=== PATIENT | male | born 1935 | race African-American/Black ===

== ENCOUNTER 2017-06-26 10:38 | Emergency (ER) | payer OTHER ==
[2017-06-26 10:55] VITALS: TEMP 97.7; BMI 27.8
--- NOTE | 2017-06-26 10:56 | PDOC ---
History of Present Illness - General Chief Complaint: Urinary Problem Stated Complaint: URINARY RETENTION Time Seen by Provider: 06/26/17 10:46 - History of Present Illness Initial Comments: 06/26/17 10:51 82 M with h/o BPH, HTN, colon CA s/p resection and chemo, presenting to ER with 20 hours of urinary retention. Pt was at [facility] 5 days ago for similar issue, had been unable to urinate for 24 hours, and he had a reyna catheter placed. Pt was discharged home on flomax and cipro, which he has been taking. He followed up with his urologist yesterday, and the catheter was removed at 3 PM. Since then, pt has not been able to void. He now complains of lower abdominal pain and strong urge to urinate. Denies F/C. Denies flank pain. Denies N/V/D. Past History - Past Medical History Allergies/Adverse Reactions: Allergies Allergy/AdvReac Type Severity Reaction Status Date / Time No Known Allergies Allergy Verified 06/26/17 10:44 Home Medications: Ambulatory Orders Ciprofloxacin [Cipro (Restricted To Id)] 500 mg PO Q12H 06/26/17 Labetalol HCl 300 mg PO BID 06/26/17 Tamsulosin HCl [Flomax] 0.4 mg PO DAILY 06/26/17 Timolol 0.5% [Timoptic 0.5%] 1 drop OP BID 06/26/17 Cancer: Yes (colon) COPD: No HTN: Yes - Surgical History Abdominal Surgery: Yes (colon resection) - Suicide/Smoking/Psychosocial Hx Smoking History: Never smoked Hx Alcohol Use: No Drug/Substance Use Hx: No Substance Use Type: None Review of Systems - Review of Systems Comments:: 06/26/17 10:53 "GENERAL/CONSTITUTIONAL: No fever or chills. No weakness. HEAD, EYES, EARS, NOSE AND THROAT: No change in vision. No ear pain or discharge. No sore throat. CARDIOVASCULAR: No chest pain or shortness of breath. RESPIRATORY: No cough, wheezing, or hemoptysis. GASTROINTESTINAL: +lower abdominal pain, No nausea, vomiting, diarrhea or constipation. GENITOURINARY: + urinary retention MUSCULOSKELETAL: No joint or muscle swelling or pain. No neck or back pain. SKIN: No rash NEUROLOGIC: No headache, vertigo, loss of consciousness, or change in strength/ sensation. ENDOCRINE: No increased thirst. No abnormal weight change. HEMATOLOGIC/LYMPHATIC: No anemia, easy bleeding, or history of blood clots. ALLERGIC/IMMUNOLOGIC: No hives or skin allergy. " *Physical Exam - Vital Signs Last Vital Signs Temp Pulse Resp BP Pulse Ox 97.7 F 79 18 191/131 99 06/26/17 10:44 06/26/17 10:44 06/26/17 10:44 06/26/17 10:44 06/26/17 10:44 - Physical Exam Comments: 06/26/17 10:53 "GENERAL: Awake, alert, and fully oriented, in no acute distress HEAD: No signs of trauma EYES: PERRLA, EOMI, sclera anicteric, conjunctiva clear ENT: Auricles normal inspection, hearing grossly normal, nares patent, oropharynx clear without exudates. Moist mucosa NECK: Nontender, no stepoffs, Normal ROM, supple, no lymphadenopathy, JVD, or masses LUNGS: Breath sounds equal, clear to auscultation bilaterally. No wheezes, and no crackles HEART: Regular rate and rhythm, normal S1 and S2, no murmurs, rubs or gallops ABDOMEN: + lower abdominal tenderness with palpable bladder EXTREMITIES: Normal range of motion, no edema. No clubbing or cyanosis. No cords, erythema, or tenderness NEUROLOGICAL: Cranial nerves II through XII intact. 5/5 strength and sensation in all extremities, Normal speech, normal gait SKIN: Warm, Dry, normal turgor, no rashes or lesions noted. " ED Treatment Course - LABORATORY CBC & Chemistry Diagram: 06/26/17 11:00 06/26/17 11:00 Medical Decision Making - Medical Decision Making 06/26/17 10:56 82 M with urinary retention x 20 hours, likely 2/2 BPH. Is currently being tx' ed for UTI with cipro, which he reports compliance with. - Reyna catheter - Labs to check renal function - UA, UCx 06/26/17 13:24 Pt with 1000cc urine drained, with resolution of abdominal pain. Repeat abdominal exam nontender. Labs notable for Cr 1.7. No baseline to compare. Pt to f/u with urologist tomorrow. 06/26/17 14:14 Pt noted to be hypertensive to 200s systolic. Pt admits to not taking his BP meds today. Will give home dose labetalol and losartan. 06/26/17 15:01 BP rechecked after home meds. Now 170/90. Pt states he usually runs high but cannot remember what his baseline BP is. Pt informed that he needs to call his PMD tomorrow to have his BP meds adjusted. *DC/Admit/Observation/Transfer Diagnosis at time of Disposition: Urinary retention - Discharge Dispostion Disposition: HOME Condition at time of disposition: Fair - Referrals - Patient Instructions Printed Discharge Instructions: DI for Urinary Retention in Men Additional Instructions: You must follow up with your urologist TOMORROW. Your labs today showed that your kidney function is slightly decreased. This may be due to the obstruction that was caused by your prostate. You need to have your bloodwork and kidney function tests rechecked within a few days to be sure your kidneys are recovering. Tell your urologist that your Creatinine level was 1.7 today Continue taking the antibiotics as prescribed. If the catheter stops draining or if you experience fevers, pain, or any other concerning symptoms, return to the ER immediately. You also need to call your primary doctor tomorrow regarding your blood pressure , which was quite high today. You may need to have your medications adjusted, as uncontrolled blood pressure can lead to serious heart disease, illness, or even . - Post Discharge Activity - Attestations Physician Attestion: 06/26/17 13:32 I, Dr. Yassine Baker MD, attest that this document has been prepared under my direction and personally reviewed by me in its entirety. I further attest, that it accurately reflects all work, treatment, procedures and medical decision -making performed by me.
[2017-06-26 11:13] LABS: HEMATOCRIT 34.4 % (35.4-49); HEMOGLOBIN 11.8 GM/dl (11.7-16.9); MCH 30.5 pg (25.7-33.7); MCHC 34.2 g/dl (32.0-35.9); MEAN CELL VOLUME 89.3 fl (80-96); MEAN PLT VOLUME 8.8 fl (7.5-11.1); PLATELET COUNT 224 K/MM3 (134-434); RBC 3.86 M/mm3 (4.00-5.60); RDW 13.8 % (11.9-15.9); WHITE BLOOD COUNT 10.6 K/mm3 (4.0-10.8)
[2017-06-26 11:31] LABS: ALBUMIN 3.8 g/dl (3.5-5.0); ALK PHOS 50 U/L (32-92); ANION GAP 6 (8-16); BILIRUBIN,TOTAL 0.8 mg/dl (0.2-1.0); BLOOD UREA NITROGEN 25 mg/dl (7-18); CALCIUM 9.2 mg/dl (8.4-10.2); CHLORIDE 103 mmol/L (98-107); CO2 20 mmol/L (22-28); CREATININE 1.7 mg/dl (0.6-1.3); GLUCOSE,RANDOM 105 mg/dl (74-106); POTASSIUM 3.5 mmol/L (3.5-5.1); SGOT/AST 24 U/L (10-42); SGPT/ALT 13 U/L (10-40); SODIUM 129 mmol/L (136-145); TOT PROT 6.5 g/dl (6.4-8.3)
[2017-06-26] MEDS ORDERED: LABETALOL HCL 100 MG TABLET (FP) PO ONE (14:13)
[2017-06-26] MEDS ORDERED: LOSARTAN POTASSIUM 50 MG TABLET (FP) PO ONE (14:14)
[2017-06-26 15:31] VITALS: BP 151/95; PULSE 65
[2017-06-26 15:51] LABS: URINE APPEARANCE Clear; URINE BILIRUBIN Negative (NEGATIVE); URINE GLUCOSE (UA) Negative (NEGATIVE); URINE KETONE Negative (NEGATIVE); URINE NITRITE Negative (NEGATIVE); URINE PROTEIN Negative (NEGATIVE); URINE UROBILINOGEN 0.2 (0.2-1.0)
[2017-06-26 15:53] LABS: URINE BLOOD 2+ (NEGATIVE); URINE COLOR YELLOW; URINE LEUK ESTERASE TRACE (NEGATIVE)
[2017-06-26 15:56] LABS: URINE BACTERIA FEW /hpf (NEGATIVE); URINE WBC 0-2 (0-2)
[2017-06-26 20:19] LABS: OVALOCYTE 1+; TEAR DROP CELLS 1+
[2017-06-26 20:20] LABS: PLATELET ESTIMATE ADEQUATE
== END 2017-06-26 15:50 | disposition home or self-care (01) ==
LOC: FER 10:38
PROC: 0T9B70Z Drainage of Bladder with Drainage Device, Via Natural or Artificial Opening (ICD-10-PCS; principal; 2017-06-26)
DX: R33.9 Retention of urine, unspecified (principal); I10 Essential (primary) hypertension; Z85.038 Personal history of other malignant neoplasm of large intestine; N40.0 Benign prostatic hyperplasia without lower urinary tract symptoms
CPT/HCPCS: 36415; 51702; 80053; 81003; 81015; 85025; 87086; 99284-25